=== PATIENT | female | born 1995 | race African-American/Black ===

== ENCOUNTER 2018-08-14 09:41 | Emergency (ER) | payer SELFPAY ==
[~2018-08-14] VITALS: Ht 182.9 cm; Wt 84.4 kg
[2018-08-14] MEDS ORDERED: AZITHROMYCIN 500 MG TABLET PO ONE (11:15)
[2018-08-14] MEDS ORDERED: CEFTRIAXONE SODIUM 250 MG/VIAL IM ONE (11:15)
[2018-08-14 11:36] VITALS: BP 108/68
== END 2018-08-14 11:37 | disposition home or self-care (01) ==
LOC: ER 09:41
DX: N76.0 Acute vaginitis (principal)
CPT/HCPCS: 81025; 96372; 99283; J0696